=== PATIENT | female | born 1990 | race Caucasian/White ===

== ENCOUNTER 2017-02-21 23:38 | Inpatient (IN) ==
[2017-02-21 18:27] LABS: Bilirubin,Urine Negative (Negative); Blood,Urine Negative (Negative); Clarity,Urine Cloudy (Clear); Color,Urine Yellow (Yellow); Glucose,Urine (UA) Normal (Normal); Ketones,Urine Negative (Negative); Leukocyte Esterase,Urine Trace (Negative); Nitrite,Urine Negative (Negative); Protein,Urine Negative (Neg-Trace); Specific Gravity,Urine 1.011 (1.010-1.025); Urobilinogen,Urine Normal (Normal)
[2017-02-21 18:29] LABS: Bacteria,Urine Few per hpf (None-Few); Hyaline Casts,Urine None Seen per lpf (None-Few); RBC,Urine 0-3 per hpf (0-3)
[2017-02-21 18:41] LABS: Amphetamine Screen,Urine Negative ng/mL (Cutoff=1000); Barbiturate Screen,Urine Negative ng/mL (Cutoff=200); Benzodiazepines Screen,Urine Negative ng/mL (Cutoff=200); Cannabinoid Screen,Urine Negative ng/mL (Cutoff = 50); Cocaine Screen,Urine Negative ng/mL (Cutoff= 300); Opiate Screen,Urine Negative ng/mL (Cutoff=300); Phencyclidine Screen,Urine Negative ng/mL (Cutoff=25)
[2017-02-21 18:45] LABS: Squamous Epithelial Cell,Urine Few per lpf (None-Few)
--- NOTE | 2017-02-21 22:35 | OB/GYN History & Physical ---
Date of Encounter: 02/21/17 Time of Encounter: 22:23 Assessment and Plan (1) 36 weeks gestation of Current visit: Yes Status: Acute Admitted for labor (2) Previous delivery in third trimester, antepartum Current visit: Yes Status: Acute Was started on vaginal progesterone after initiating care. Patient discontinued use prior to 30 weeks gestation (3) labor in third trimester Current visit: Yes Status: Acute Continue labor management Anticipate Qualifiers: labor delivery status: with delivery in third trimester Fetus number: single or unspecified fetus Qualified Code(s): O60.14X0 - labor third trimester with delivery third trimester, not applicable or unspecified (4) Late care affecting in third trimester Current visit: Yes Status: Acute History of Present Illness Chief complaint: contractions HPI: Ms. Roblero is a 26 year old female presenting at 36 weeks gestation for contractions. On arrival, patient was 2-3 cm, now 5 cm. Patient admitted for labor. Late entry to care at 24w1d, 4 visits. History of precipitous delivery at 33 weeks. Pt was on vaginal progesterone but states she quit using it at some point before 30 weeks because it caused irritation and discharge. GBS completed today, result negative O positive, antibody screen negative. HbSAG negative Treponema Pallidum negative Rubella Negative Varicella negative Past Med Surg Social Fam HX - Past Medical History Source: patient Medical history: no medical history Psychiatric history: no psych history - Past Surgical History Surgical History: no surgical history - Social History Smoking Status: Never smoker Smokeless Tobacco Status: No Alcohol use: none Drug use: none Current living situation: Home - Independent Activity Level: Independent ambulation Recent Out of Country Travel Within the Last 8 Weeks: No Exposure or Possible Exposure to Illness During Travel: No - Family History Mother Adopted: No Living Status: Still Living Hx Family Cardiac Disorders: No Hx Family Respiratory Disorders: No Hx Family Cancer: No Hx Family GI Disorders: No Hx Family Genitourinary Disorders: No Hx Family Endocrine Disorder: No Hx Family Musculoskeletal Disorders: No Hx Family Neuromuscular Disorders: No Hx Family Neurologic Disorders: No Hx Family HEENT Disorders: No Hx Family Autoimmune Disorders: No Hx Family Reproductive Disorders: No Hx Family Psychosocial Disorders: No Hx Family Medical Disorders: No Obstetrical History - Pregnancies : 2 Para: 1 Term: 0 : 1 Ab's: 0 Livin - History/Complications History/Complications: Previous at 33 weeks Medications and Allergies Vit Calc,Iron,Folic [ Vitamins] 1 tab PO DAILY 02/21/17 [ History] 3 Allergy/AdvReac Type Severity Reaction Status Date / Time No Known Allergies Allergy Verified 02/18/15 18:15 Review of System OB All systems PM: reviewed and no additional remarkable complaints except as stated Exam - Constitutional Constitutional: well developed, well nourished, no acute distress - Neck Neck exam: full ROM - Lungs Respiratory exam: CTAB - Cardiovascular Cardiovascular exam: RRR, +S1, +S2 - Breasts Breast: bilateral: normal - Abdomen Abdomen: Present: bowel sounds normal, gravid, non tender - Extremities Extremities exam: full ROM, normal capillary refill, normal inspection - Vulva Vulva: bilateral: normal - Vagina Vagina: Present: normal moisture - Cervix Dilation: 5 Effacement: 80 (per RN) Station: +1 - Uterus Uterus exam: Present: normal size - Anus/Rectum Anus/Rectum: Present: normal perianal skin Results Abnormal lab results Urine Clarity Cloudy (Clear) A 02/21/17 18:15 Ur Leukocyte Esterase Trace (Negative) H 02/21/17 18:15 Urine Microscopic WBC 5-15 per hpf (0-3) H 02/21/17 18:15 Ur Culture Indicated? YES (NO) A 02/21/17 18:15 All other labs normal. - VTE Reasons for not Prescribing Prophylaxis: Treatment not Indicated - Low risk for VTE
[2017-02-21 23:17] LABS: Basophils % 0.3 %; Eosinophils % 0.2 %; Hematocrit 38.5 % (35.3-44.9); Immature Granulocytes % 0.3 % (0-4); Lymphocytes # 2.5 K/mcL (0.6-4.6); Lymphocytes % 23.5 %; Mean Corpuscular HGB Conc 33.8 g/dL (31.6-35.5); Mean Corpuscular Hemoglobin 29.1 pg (28.0-33.3); Mean Corpuscular Volume 86.3 fL (83.0-100.0); Mean Platelet Volume 10.8 fL (9.4-12.4); Monocytes # 0.5 K/mcL (0.0-1.3); Monocytes % 4.7 %; Neutrophils # 7.6 K/mcL (1.6-8.9); Platelet Count 214 K/mcL (140-400); Red Blood Count 4.46 M/mcL (3.82-4.97); Red Cell Distribution Width 12.6 % (11.5-14.5)
[~2017-02-21 23:38] MED LIST: Famotidine 20 MG/2 ML VIAL IVP PRN; Metoclopramide 10 MG/2 ML VIAL IVP PRN; Naloxone 0.4 MG/ML INJ IVP PRN; Ondansetron 4 MG/2 ML VIAL IVP PRN; Ringers Solution, Lactated 1,000 ML IVC SCH
[2017-02-22] MEDS ORDERED: *HR* Nalbuphine 20 MG/ML AMPUL IVP PRN (03:00)
--- NOTE | 2017-02-22 03:02 | OB Labor Progress Note ---
Date of Encounter: 02/22/17 Time of Encounter: 03:00 Labor Progress Note - Subjective Subjective: Pt requesting Nubain for pain. She denies desire for epidural. - Cervix Cervix: 7/90/0 - Heart Tones Heart Tones: Category I - [place] Finder[place]: unable to assess, pt reports Q 3-4 minutes - Plan Plan: Nuabin now for pain. Continue expectant managment. Will consider AROM for augmentation when 8-9cm.
[2017-02-22] MEDS ORDERED: *HR* Nalbuphine 20 MG/ML AMPUL ONE (03:03)
--- NOTE | 2017-02-22 06:24 | OB Labor Progress Note ---
Date of Encounter: 02/22/17 Time of Encounter: 06:22 Labor Progress Note - Subjective Subjective: Pt resting between contractions. Nubain effective for controlling pain with contractions. - Cervix Cervix: 9/100/0 - Heart Tones Heart Tones: 130 bpm, moderate variability, no accels, no decels. - [place]: q 2-3 minutes. - Interventions Interventions: SVE, AROM for large amount of clear fluid. - Plan Plan: Continue labor management Anticipate
[2017-02-22] MEDS ORDERED: Lidocaine/EPI 1:100k 1% 30 ML VIAL ONE (07:50)
[2017-02-22] MEDS ORDERED: Oxytocin 20 units/ LR 1000 mL 20 UNIT/1,000 ML BAG IVC ONE ×3 (07:52→12:34)
--- NOTE | 2017-02-22 08:00 | OB Labor Progress Note ---
Date of Encounter: 02/22/17 Time of Encounter: 07:58 Labor Progress Note - Subjective Subjective: Pt breathing through contractions. Very uncomfortable. Epidural offered and patient would like to proceed. - Cervix Cervix: 8/100/0 - Heart Tones Heart Tones: 130 bpm, moderate variability, + 15x15 accel, no decels. - [place]: 2-4 minutes - Interventions Interventions: SVE - Plan Plan: Consult anesthesia for epidural placement Continue labor management Anticipate
[2017-02-22] MEDS ORDERED: Naloxone 0.4 MG/ML INJ IVP PRN (08:15)
[2017-02-22] MEDS ORDERED: Ondansetron 4 MG/2 ML VIAL IVP PRN (08:15)
[2017-02-22] MEDS ORDERED: Bupivacaine-MPF 0.25% 10 ML VIAL EP ONE (08:15)
[2017-02-22] MEDS ORDERED: Epidural Premix (fent/bupiv) 110 ML EP SCH (08:15)
[2017-02-22] MEDS ORDERED: EPHEDrine 50 MG/ML VIAL IVP PRN (08:15)
[2017-02-22] MEDS ORDERED: *HR* FentaNYL (PF) 100 MCG/2 ML VIAL EP ONE (08:15)
--- NOTE | 2017-02-22 08:19 | Anesthesia Evaluation PreOp ---
Date of Encounter: 02/22/17 Time of Encounter: 08:05 - Past History Planned Operation: TAJ/spinal Cardiac History: Denies any Significant Hx Pulmonary History: Denies Any Significant HX VACUUM WORKER History: Denies Any Significant HX Other Medical History: Denies Any Significant HX Anesthesia History: No Prior Anesthetic Complications : Yes Alcohol Use: none Drug use: none Medications and Allergies Vit Calc,Iron,Folic [ Vitamins] 1 tab PO DAILY 02/21/17 [ History] 3 Allergy/AdvReac Type Severity Reaction Status Date / Time No Known Allergies Allergy Verified 02/18/15 18:15 - Meds/Allergy Pre-op Review Medications Reviewed: Yes Allergies Reviewed: Yes Beta Blockers on Current Med List: No Anesthesia Results - Labs 02/21/17 23:00 Anesthesia Exam BP 13/73 P 78 T 98.6 R 16 Height: 5'4" Weight: 66.4kg NPO (# of Hours): 12 Pain Scale: 9 Pain Scale Used: Numeric (1 - 10) - HEENT Pupil (Motor): Pupils equal Mallampati: II Teeth: Normal Oral Opening: Greater than 3 - VACUUM WORKER LOC: Oriented VACUUM WORKER Motor: Normal RUE, Normal LUE, Normal RLE, Normal LLE, Normal Face VACUUM WORKER Sensory: Normal: RUE, LUE, RLE, LLE, Face - Cardiac Rhythm: Regular Murmur: None JVD: No Carotid Bruit: No - Pulmonary Breath Sounds: bilateral Clear Respiratory Effort: Symmetrical Anesthesia Assess/Plan ASA Score: 2 Modified Valentine Scale for Level of Consciousness: Cooperative, oriented, and tranquil Anesthetic Plan: Regional Autologous Blood: No Monitoring Plan: Standard Monitors
--- NOTE | 2017-02-22 08:42 | Anesthesia Procedures ---
Date of Encounter: 02/22/17 Time of Encounter: 08:21 Procedures: Anesthesia - Epidural/Spinal Patient ID/Chart reviewed: Yes Patient examined: Yes OB Eval: Gestational age: 36 OB Eval: : 2 OB Eval: Hx Para: 1 OB Eval: Dilated at (cm): 9 OB Eval: Contractions: Non-stressed pattern Consent Obtained: Yes Supplemental Oxygen: None/Room Air Site Prep: Aseptic Technique, Sterile prep and drape, Povidone-Iodine 1% Patient position: right lateral decubitus Local Anesthetic: Lidocaine 1% Amount of Local Anesthetic used: 3 Interspace Used: L4-L5 Loss of Resistance (SCAR): No Blood: No CSF: Yes Paresthesia: No Spinal Needle Gauge: 25 Spinal Dose: Bupivicaine 0.75% 0.4ml Procedure: Pt to right lateral position for spinal. 1st pass spinal with no immediate noted complications noted. Spinal only without epidural performed as pt is too close to delivery for proper epidural setup. Pt pain largely decreased post spinal with lower extremity motor movement retained. Will follow up. Vitals + FHT's: 0821 BP 133/73 P 94 R 22 0830 BP 112/58 R 16 P 79 FHT 130s
--- NOTE | 2017-02-22 10:35 | OB/GYN Procedure Note ---
Delivery - Delivery Date: 02/22/17 Provider: Анна Crystal Intrapartum events: none Delivery induction: none Delivery augmentation: rupture of membranes Delivery monitor: external FHT, external uterine Anesthesia: local, other (Spinal) Estimated Blood Loss: 150 - Infant (s) A Delivery Date: 02/22/17 Infant Delivery Time: :11 Presentation: vertex Position: SUSI Route of delivery: Gender: Male Viability: Viable Pounds: 6 Ounces: 3 at 1 minute: 8 at 5 mins: 9 Shoulder Dystocia: not encountered Specimens collected: cord blood Placenta: spontaneous, uterine exploration Cord: 3 umbilical vessels - Repair Episiotomy: none Laceration Description: Periurethral (Bilateral with repair on the left), Perineal - 2nd Degree - Complications Delivery complications: none Delivery comments: The patient was complete and pushing with spinal anesthesia with a spontaneous vaginal delivery in the SUSI position of a vigorous male weighing 6 lbs. 3 oz. with Apgars of 8 at 1 minute and 9 at 5 minutes. Infant was placed on the maternal abdomen. The cord was clamped and cut after pulsations ceased. Cord blood obtained. The placenta was delivered spontaneous and intact. Uterus was explored and no retained products of conception appreciated. Leftt labial laceration was injected with 1% lidocaine with epinephrine 4 mL and closed with 4-0 Vicryl in a running nonlocking fashion. There is a second- degree perineal laceration which was repaired with 3-0 Vicryl in the usual fashion using 6 mL of 1% lidocaine with epinephrine. There was a right superficial labial laceration which was hemostatic and not repaired. Estimated blood loss 150 mL, complications none - Disposition Mom disposition: stable in LDR disposition: stable in LDR
[2017-02-22] MEDS ORDERED: Oxytocin 20 units/ LR 1000 mL 20 UNIT/1,000 ML BAG IVC SCH (12:34)
[2017-02-22] MEDS ORDERED: Measles/Mumps/Rubella Vacc 0.5 ML VIAL SQ PRN (12:34)
[2017-02-22] MEDS ORDERED: Benzocaine/Menthol 56 GM AEROSOL SPRAY TP PRN (12:34)
[2017-02-22] MEDS ORDERED: Acetaminophen 325 MG TABLET PO PRN (12:34)
[2017-02-22] MEDS: Ibuprofen 600 MG TABLET PO PRN ×2 (15:28→20:57)
[2017-02-22] MEDS ORDERED: Sennosides 8.6 MG TABLET PO PRN (21:00)
[2017-02-23] MEDS: Ibuprofen 600 MG TABLET PO PRN ×2 (02:58→08:48)
[2017-02-23 08:31] VITALS: BP 112/77
[2017-02-23] MEDS ORDERED: Prenatal Vit/FA 1 EACH TABLET PO SCH (09:00)
[2017-02-23] MEDS ORDERED: NON-FORMULARY MEDICATION 1 EACH EACH (Prenatal Vit Calc,Iron,Folic [Prenatal Vitamins] 1 T PO SCH (09:00)
--- NOTE | 2017-02-23 09:34 | Discharge Summary ---
Date of Encounter: 02/23/17 Time of Encounter: 09:32 - Discharge Diagnosis (1) Vaginal delivery Priority: Primary Status: Acute Comments: Continue routine care Discharge today (2) Second degree perineal laceration during delivery Priority: Secondary Status: Acute Comments: Pain medication prn. RX for Motrin for discharge. (3) delivery Priority: Secondary Status: Acute Comments: Routine care Discharge today - Discharge Medications Prescriptions: Ibuprofen [Motrin] 600 mg PO Q6HR PRN #60 tablet PRN Reason: Cramping Home Medications: Vit Calc,Iron,Folic [ Vitamins] 1 tab PO DAILY 02/21/17 [ History] Ibuprofen [Motrin] 600 mg PO Q6HR PRN #60 tablet 02/23/17 [Rx] Allergies/Adverse Reactions: 3 Allergy/AdvReac Type Severity Reaction Status Date / Time No Known Allergies Allergy Verified 02/18/15 18:15 Data Procedures and tests throughout hospitalization: Laboratory Tests 02/21/17 02/21/17 02/21/17 18:15 18:15 18:15 WBC RBC Hgb Hct MCV MCH MCHC RDW Plt Count MPV Immature Gran % Seg Neutrophils % Lymphocytes % Monocytes % Eosinophils % Basophils % Neutrophils # Lymphocytes # Monocytes # Eosinophils # Basophils # Urine Color Yellow Urine Clarity Cloudy A Urine pH 7.0 Ur Specific [place] 1.011 Urine Protein Negative Urine Glucose (UA) Normal Urine Ketones Negative Urine Blood Negative Urine Nitrite Negative Urine Bilirubin Negative Urine Urobilinogen Normal Ur Leukocyte Esterase Trace H Urine Microscopic RBC 0-3 Urine Microscopic WBC 5-15 H Ur Squamous Epith Cells Few Urine Bacteria Few Hyaline Casts None Seen Ur Culture Indicated? YES A Urine Opiates Screen Negative Ur Barbiturates Screen Negative Ur Phencyclidine Scrn Negative Ur Amphetamines Screen Negative U Benzodiazepines Scrn Negative Urine Cocaine Screen Negative U Marijuana (THC) Screen Negative Group B Strep (PCR) Negative 02/21/17 23:00 WBC 10.7 RBC 4.46 Hgb 13.0 Hct 38.5 MCV 86.3 MCH 29.1 MCHC 33.8 RDW 12.6 Plt Count 214 MPV 10.8 Immature Gran % 0.3 Seg Neutrophils % 71.0 Lymphocytes % 23.5 Monocytes % 4.7 Eosinophils % 0.2 Basophils % 0.3 Neutrophils # 7.6 Lymphocytes # 2.5 Monocytes # 0.5 Eosinophils # 0.0 Basophils # 0.0 Urine Color Urine Clarity Urine pH Ur Specific [place] Urine Protein Urine Glucose (UA) Urine Ketones Urine Blood Urine Nitrite Urine Bilirubin Urine Urobilinogen Ur Leukocyte Esterase Urine Microscopic RBC Urine Microscopic WBC Ur Squamous Epith Cells Urine Bacteria Hyaline Casts Ur Culture Indicated? Urine Opiates Screen Ur Barbiturates Screen Ur Phencyclidine Scrn Ur Amphetamines Screen U Benzodiazepines Scrn Urine Cocaine Screen U Marijuana (THC) Screen Group B Strep (PCR) Date of admission: 02/21/17 23:38 Primary care physician: PCP NONE Consults: 02/22/17 12:34 Consult to Curing Room Supervisor [CONS] Routine Comment: Vaginal delivery, consult needed Discharging clinician: Stella Langley (Amy Fajardo [facility]) Anticipated date of discharge: 02/23/17 - Patient Status Disposition: Home, Self-Care Condition: Good Functional capacity at discharge: independent ambulation - Discharge Instructions Follow Up With: NONE,PCP [Primary Care Provider] - Анна Crystal MD [Partnered Physician] - - Diet and Activity Activity: resume usual activities as tolerated Diet: regular diet Hospital Course Reason for admission: active labor Delivery: Episiotomy: none Laceration: 2nd degree Other procedures: none complications: perineal laceration Discharge diagnosis: delivery baby: male Time Attestation: Total time spent providing and/or coordinating discharge services: Time Spent: Less than 30 minutes Exam - Constitutional Vitals: Temp Pulse Resp BP Pulse Ox 98.0 F 75 16 112/77 96 02/23/17 08:53 02/23/17 08:53 02/23/17 08:53 02/23/17 08:53 02/23/17 08:53 General appearance IM: A&O X 3 - Respiratory Respiratory exam: Present: CTAB - Cardiovascular Cardiovascular exam IM: Present: RRR, +S1, +S2 - GI/Abdominal GI/Abdominal exam IM: normal bowel sounds - Rectal Rectal exam: deferred - Uterine Tone: Firm Uterus Position: 2 Fingers Below Umbilicus - Extremities Exam Extremities exam IM: Present: full ROM, normal capillary refill, normal inspection - Neurological Exam Neurological exam: alert, oriented X3
== END 2017-02-23 14:00 | disposition home or self-care (01) | DRG 775 ==
LOC: 1NENULAB → 1NENUOBS 02-22 12:33
PROVIDERS: ADMIT Obstetrics & Gynecology; ATTEND Obstetrics & Gynecology